=== PATIENT | female | born 1955 | race Caucasian/White ===

== ENCOUNTER 2017-02-04 09:56 | Observation (INO) | payer MEDICAID, OTHER, SELFPAY ==
--- NOTE | 2017-02-04 11:16 | C.PDOC ---
History Of Present Illness 61-year-old female, PMHx includes Hypertension and Hypercholesterolemia, presents to the emergency department with complaints of dyspnea on exertion x1 month. She notes associated tingling and numbness to tongue and B/L arms, right greater than left. Patient notes associated pain to right shoulder. Denies nausea/vomiting, dizziness, visual changes, or any other associated symptoms. No other complaints. Time Seen by Provider: 02/04/17 10:17 Chief Complaint (Nursing): Shortness Of Breath History Per: Patient History/Exam Limitations: no limitations Past Medical History Reviewed: Historical Data, Nursing Documentation, Vital Signs Vital Signs: Last Vital Signs Temp 98.8 F 02/04/17 15:02 Pulse 76 02/04/17 15:02 Resp 16 02/04/17 15:02 BP 160/88 H 02/04/17 15:02 Pulse Ox 98 02/04/17 15:02 - Medical History PMH: HTN Family History: States: Unknown Family Hx - Social History Hx Alcohol Use: No Hx Substance Use: No Review Of Systems Except As Marked, All Systems Reviewed And Found Negative. Constitutional: Negative for: Fever, Chills Eyes: Negative for: Vision Change Respiratory: Positive for: Shortness of Breath Musculoskeletal: Positive for: Neck Pain, Shoulder Pain Skin: Negative for: Rash Neurological: Positive for: Numbness. Negative for: Weakness, Headache, Dizziness Physical Exam - Physical Exam Appears: Non-toxic, No Acute Distress Skin: Warm, Dry, No Rash Head: Atraumatic, Normacephalic Eye(s): bilateral: Normal Inspection, PERRL Nose: Normal Oral Mucosa: Moist Lips: Normal Appearing Neck: Paracervical Tenderness Cardiovascular: Rhythm Regular Respiratory: Normal Breath Sounds, No Accessory Muscle Use Extremity: Tenderness (right shoulder, diffuse. no skin changes, pulses intact, painful range of motion), No Deformity, No Swelling Neurological/Psych: Oriented x3, Normal Speech ED Course And Treatment - Laboratory Results Result Diagrams: 02/04/17 11:42 02/04/17 11:42 ECG Rhythm: Sinus Rhythm ECG Interpretation: No Acute Changes Rate From EC O2 Sat by Pulse Oximetry: 98 - Other Rad CXR X-Ray: Viewed By Me, Read By Radiologist Interpretation: Accession No. : [id number]. Patient Name / ID : JUAN ZAPATA / [id number]. Exam Date : 02/04/2017 11:10:34 ( Approved ). Study Comment : Sex / Age : F / 61Y. Creator : Chauncey Monsivais MD. Dictator : Chauncey Monsivais MD. Cable Driller : Supervisor Tower : Chauncey Monsivais MD. Approver2 : Report Date : 02/04/2017 11:59:16. My Comment : . HISTORY: SOB on exertion. COMPARISON: No prior. TECHNIQUE: Chest PA and lateral. FINDINGS: LUNGS: No active pulmonary disease. PLEURA: No significant pleural effusion identified. No pneumothorax apparent. CARDIOVASCULAR: Normal. OSSEOUS STRUCTURES: No significant abnormalities. VISUALIZED UPPER ABDOMEN: Normal. OTHER FINDINGS: None. IMPRESSION: No active disease. C-spine xray X-Ray: Viewed By Me, Read By Radiologist Interpretation: Accession No. : [id number]. Patient Name / ID : JUAN ZAPATA / [id number]. Exam Date : 02/04/2017 11:10:54 ( Approved ). Study Comment : Sex / Age : F / 61Y. Creator : Chauncey Monsivais MD. Dictator : Chauncey Monsivais MD. Cable Driller : Supervisor Tower : Chauncey Monsivais MD. Approver2 : Report Date : 02/04/2017 11:46:58. My Comment : . PROCEDURE: Cervical Spine Radiographs. HISTORY: Pain. COMPARISON: None. FINDINGS: BONES: Alignment maintained. No fracture. Dens Intact. Limited visualization of 7th cervical vertebra in lateral view. Straightening of normal lordotic curvature. DISC SPACES: Narrowing of C5-6 intervertebral disc space consistent with degenerative disc disease. SOFT TISSUES: Normal. No prevertebral soft tissue swelling. OTHER FINDINGS: None. IMPRESSION: Degenerative disc disease at C5- 6. Otherwise unremarkable. Shoulder xray X-Ray: Viewed By Me, Read By Radiologist Interpretation: Accession No. : [id number]. Patient Name / ID : JUAN ZAPATA / [id number]. Exam Date : 02/04/2017 11:11:11 ( Approved ). Study Comment : Sex / Age : F / 61Y. Creator : Chauncey Monsivais MD. Dictator : Chauncey Monsivais MD. Cable Driller : Supervisor Tower : Chauncey Monsivais MD. Approver2 : Report Date : 02/04/2017 11:45:18. My Comment : . PROCEDURE: Radiographs of the Right Shoulder. HISTORY: Right arm/shoulder pain/numbness. COMPARISON: No prior. FINDINGS: BONES: Normal. No fracture. JOINTS: Normal. Glenohumeral and acromioclavicular joints preserved. No osteoarthritis. SOFT TISSUES: Normal. OTHER FINDINGS: None. IMPRESSION: Normal radiographs of the right shoulder. - CT Scan/US Head CT Other Rad Studies (CT/US): Read By Radiologist, Radiology Report Reviewed CT/US Interpretation: Accession No. : [id number]. Patient Name / ID : JUAN ZAPATA / [id number]. Exam Date : 02/04/2017 11:11:11 ( Approved ). Study Comment : Sex / Age : F / 61Y. Creator : Chauncey Monsivais MD. Dictator : Chauncey Monsivais MD. Cable Driller : Supervisor Tower : Chauncey Monsivais MD. Approver2 : Report Date : 02/04/2017 11:45:18. My Comment : . PROCEDURE : Radiographs of the Right Shoulder. HISTORY: Right arm/shoulder pain/ numbness. COMPARISON: No prior. FINDINGS: BONES: Normal. No fracture. JOINTS: Normal. Glenohumeral and acromioclavicular joints preserved. No osteoarthritis. SOFT TISSUES: Normal. OTHER FINDINGS: None. IMPRESSION: Normal radiographs of the right shoulder. Progress Note: CT Head. EKG. CK-MB, CMP, C Phos, Trop I. CBC, PTT, PT. Chest X-Ray. XR: C-Spine, R Shoulder. Case was d/w pt's PMD who instructed to put patient to Hospitalist service to [facility] for observation. Case was d/w who accepted the patient to her service. Disposition - Disposition Disposition: HOSPITALIZED Disposition Time: 14:16 Condition: FAIR - Clinical Impression Clinical Impression: Dyspnea on exertion, Numbness of tongue - Scribe Statement The provider has reviewed the documentation as recorded by the Scribjulianna Bell All medical record entries made by the Scribe were at my direction and personally dictated by me. I have reviewed the chart and agree that the record accurately reflects my personal performance of the history, physical exam, medical decision making, and the department course for this patient. I have also personally directed, reviewed, and agree with the discharge instructions and disposition.
--- NOTE | 2017-02-04 11:38 | CT ---
PROCEDURE: CT HEAD WITHOUT CONTRAST. HISTORY: tongue numbness COMPARISON: None available. TECHNIQUE: Axial computed tomography images were obtained through the head/brain without intravenous contrast. Radiation dose: Total exam DLP = 1011.03 mGy-cm. This CT exam was performed using one or more of the following dose reduction techniques: Automated exposure control, adjustment of the mA and/or kV according to patient size, and/or use of iterative reconstruction technique. FINDINGS: HEMORRHAGE: No intracranial hemorrhage. BRAIN: No mass effect or edema. No atrophy or chronic microvascular ischemic changes. VENTRICLES: Unremarkable. No hydrocephalus. CALVARIUM: Unremarkable. PARANASAL SINUSES: Unremarkable as visualized. No significant inflammatory changes. MASTOID AIR CELLS: Unremarkable as visualized. No inflammatory changes. OTHER FINDINGS: None. IMPRESSION: Normal CT of the Head.
--- NOTE | 2017-02-04 11:46 | RAD ---
PROCEDURE: Radiographs of the Right Shoulder HISTORY: Right arm/shoulder pain/numbness COMPARISON: No prior. FINDINGS: BONES: Normal. No fracture. JOINTS: Normal. Glenohumeral and acromioclavicular joints preserved. No osteoarthritis. SOFT TISSUES: Normal. OTHER FINDINGS: None. IMPRESSION: Normal radiographs of the right shoulder.
[2017-02-04 11:48] LABS: BASO % 0.7 % (0.0-2.0); EOS # 0.2 K/uL (0.0-0.7); EOS % 2.9 % (0.0-4.0); LYMPH % 31.9 % (20.0-40.0); MEAN CELL VOLUME 91.2 fL (81.0-99.0); MEAN CORPUSCULAR HEMOGLOBIN 29.5 pg (27.0-31.0); MEAN CORPUSCULAR HGB CONC 32.3 g/dL (33.0-37.0); MEAN PLATELET VOLUME 8.2 fL (7.2-11.7); MONO # 0.4 K/uL (0.0-0.8); MONO % 6.1 % (0.0-10.0); NRBC % 0.1 % (0.0-2.0); RED CELL DISTRIBUTION WIDTH 14.4 % (11.5-14.5); WHITE BLOOD COUNT 6.1 K/uL (4.8-10.8)
--- NOTE | 2017-02-04 11:48 | RAD ---
PROCEDURE: Cervical Spine Radiographs. HISTORY: Pain. COMPARISON: None. FINDINGS: BONES: Alignment maintained. No fracture. Dens Intact. Limited visualization of 7th cervical vertebra in lateral view. Straightening of normal lordotic curvature. DISC SPACES: Narrowing of C5-6 intervertebral disc space consistent with degenerative disc disease. SOFT TISSUES: Normal. No prevertebral soft tissue swelling. OTHER FINDINGS: None. IMPRESSION: Degenerative disc disease at C5-6. Otherwise unremarkable.
[2017-02-04 11:55] LABS: CHLORIDE 104 mmol/L (98-107); SODIUM 142 mmol/L (132-148)
[2017-02-04 11:57] LABS: AST/SGOT 43 U/L (14-36); BILIRUBIN,TOTAL 0.8 mg/dL (0.2-1.3); CARBON DIOXIDE 24 mmol/L (22-30); GFR AFRICAN-AMERICAN > 60; POTASSIUM 4.3 mmol/L (3.6-5.2)
[2017-02-04 11:58] LABS: ALB/GLOB RATIO 1.2 (1.0-2.1); ALKALINE PHOSPHATASE 68 U/L (38-126); ALT/SGPT 40 U/L (9-52); BLOOD UREA NITROGEN 12 mg/dL (7-17); CALCIUM 9.1 mg/dl (8.6-10.4); GLUCOSE,RANDOM 118 mg/dL (65-105); TOTAL PROTEIN 8.7 g/dL (6.3-8.3)
--- NOTE | 2017-02-04 12:01 | RAD ---
HISTORY: SOB on exertion COMPARISON: No prior. TECHNIQUE: Chest PA and lateral FINDINGS: LUNGS: No active pulmonary disease. PLEURA: No significant pleural effusion identified. No pneumothorax apparent. CARDIOVASCULAR: Normal. OSSEOUS STRUCTURES: No significant abnormalities. VISUALIZED UPPER ABDOMEN: Normal. OTHER FINDINGS: None. IMPRESSION: No active disease.
[2017-02-04] MEDS: Sodium Chloride 0.45% 1,000 ML IV SCH (15:26)
[2017-02-04 15:35] LABS: RBC URINE 1 /hpf (0-3); URINE BILIRUBIN NEGATIVE (NEGATIVE); URINE BLOOD NEGATIVE (NEGATIVE); URINE COLOR Yellow (YELLOW); URINE GLUCOSE (UA) NORMAL (Normal); URINE KETONE TRACE mg/dL (NEGATIVE); URINE LEUKOCYTE ESTERASE 1+ Leu/uL (Negative); URINE PROTEIN NEGATIVE (NEGATIVE); URINE UROBILINOGEN NORMAL mg/dL (0.2-1.0); WBC URINE 11 /hpf (0-5)
--- NOTE | 2017-02-04 15:55 | CP.PCM.HP ---
<Ca Farmer - Last Filed: 02/04/17 15:32> History of Present Illness - History of Present Illness History of Present Illness: CC: "short of breath and tingling" HPI: 61 year old female with PMHx of HTN and HLD presents with multiple chronic complaints. The patient states that 6 months ago she started to develop shortness of breath on exertion. She is able to walk 1-2 blocks before dyspnea occurs. Denies shortness of breath at rest and orthopnea. The patient also complains of a dry cough associated with the exertion. In September 2016 she went to see her PMD Dr Mead and was diagnosed with HTN. He started her on a month course of Losartan and Simvastatin but the patient states that she never went back to refill her medications because she does not have insurance. Patient states that she has also had one month of right neck pain associated with bilateral upper extremity numbness and tingling. Patient states that the neck pain starts at the base of her skull and radiates down her scapula to her mid-back. The pain is described as tingling, rated 7/10 at its worst, constant , relieved with Tylenol, and occurs in her arms and hands. Patient denies fever , chills, nausea, vomiting, diarrhea, constipation, trauma, change in bowel movements, urinary symptoms, headache, dizziness, weakness, dysphagia, slurred speech, facial drooping, chest pain, palpitations, change in vision, syncope, anxiety, rash, recent travel, seizure, and swelling. All other ROS negative. 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 absent: Chills, Fever - EENT Eyes: As Per HPI. absent: Blurred Vision, Change in Vision Ears: As Per HPI. absent: Dizziness Nose/Mouth/Throat: As Per HPI. absent: Sore Throat - Cardiovascular Cardiovascular: As Per HPI, Dyspnea on Exertion. absent: Chest Pain, Chest Pain at Rest, Lightheadedness, Orthopnea, Palpitations, Pedal Edema, Syncope - Respiratory Respiratory: As Per HPI, Cough, Dyspnea on Exertion. absent: Hemoptysis, Wheezing, Stridor, Chest Congestion, Excessive Mucous Production - Gastrointestinal Gastrointestinal: As Per HPI. absent: Bloating, Constipation, Diarrhea, Nausea , Vomiting - Genitourinary Genitourinary: As Per HPI. absent: Difficulty Urinating, Dysuria, Flank Pain, Hematuria, Pyuria - Musculoskeletal Musculoskeletal: As Per HPI, Numbness, Tingling. absent: Muscle Cramps, Muscle Weakness - Integumentary Integumentary: As Per HPI. absent: New Lesions, Rash - Neurological Neurological: As Per HPI, Radicular Pain. absent: Dizziness, Headaches, Tremor , Vertigo, Weakness - Psychiatric Psychiatric: As Per HPI. absent: Anxiety, Depression - Endocrine Endocrine: As Per HPI. absent: Palpitations Past Patient History - Past Social History Smoking Status: Never Smoked - CARDIAC Hx Hypertension: Yes - PSYCHIATRIC Hx Substance Use: No - SURGICAL HISTORY Hx Surgeries: Yes Hx Section: Yes (X1) Meds Allergies/Adverse Reactions: Allergies Allergy/AdvReac Type Severity Reaction Status Date / Time No Known Allergies Allergy Verified 02/04/17 10:14 Physical Exam - Constitutional Appears: Non-toxic, No Acute Distress - Head Exam Head Exam: ATRAUMATIC, NORMOCEPHALIC - Eye Exam Eye Exam: EOMI, Normal appearance, PERRL Pupil Exam: NORMAL ACCOMODATION - ENT Exam ENT Exam: Mucous Membranes Moist, Normal Exam - Neck Exam Neck exam: Positive for: Full Rom Additional comments: mild tenderness to palpation of cervical paraspinal muscle on right side, pain with right sidebending of head - Respiratory Exam Respiratory Exam: Clear to Auscultation Bilateral, NORMAL BREATHING PATTERN. absent: Accessory Muscle Use, Rhonchi, Wheezes, Respiratory Distress - Cardiovascular Exam Cardiovascular Exam: REGULAR RHYTHM, +S1, +S2. absent: Irregular Rhythm, Systolic Murmur - GI/Abdominal Exam GI & Abdominal Exam: Normal Bowel Sounds, Soft. absent: Distended, Firm, Guarding, Tenderness - Extremities Exam Extremities exam: Positive for: full ROM, normal inspection, pedal pulses present. Negative for: pedal edema - Back Exam Back exam: NORMAL INSPECTION. absent: CVA tenderness (L), CVA tenderness (R), paraspinal tenderness, rash noted - Neurological Exam Neurological exam: Alert, CN II-XII Intact, Normal Gait, Oriented x3, Reflexes Normal - Expanded Neurological Exam Expanded Patient oriented to: person, place, time Cranial nerves: EOM's Intact: Normal, Facial Palsey w/Forehead Movement: Normal , Facial Palsey w/o Forehead Movement: Normal, Facial Sensation: Normal, Gag Reflex: Normal, Nystagmus: Normal, Tongue Deviation: Normal Cerebellar Function: Finger to Nose: Normal Upper motor neuron: Babinski Sign: Normal Sensory exam: Lower Extremity Light Touch: Normal, Lower Extremity Temperature: Normal, Upper Extremity Light Touch: Normal, Upper Extremity Temperature: Normal Neuro motor strength exam: Left Upper Extremity: 5, Right Upper Extremity: 5, Left Lower Extremity: 5, Right Lower Extremity: 5 DTR: Patellar Left: 2+, Patellar Right: 2+ Coma Scale Eye Opening: SPONTANEOUS Coma Scale Motor Response: OBEYS COMMANDS - Psychiatric Exam Psychiatric exam: Normal Affect, Normal Mood - Skin Skin Exam: Dry, Intact, Normal Color, Warm Results - Vital Signs Recent Vital Signs: Last Vital Signs Temp 98.8 F 02/04/17 15:02 Pulse 76 02/04/17 15:02 Resp 16 02/04/17 15:02 BP 160/88 H 02/04/17 15:02 Pulse Ox 98 02/04/17 15:02 - Labs Result Diagrams: 02/04/17 11:42 02/04/17 11:42 Assessment & Plan - Assessment and Plan (Free Text) Assessment: 1. Dyspnea on exertion Admit to tele obs CXR- normal findings EKG- NSR, no ST changes AISHA negative x1, f/u ROMIs x2 with EKGs to rule out ACS f/u BNP f/u ECHO f/u HgA1C, lipid panel, TSH 2. Radiculopathy C-spine Xray: Degenerative joint disease of C5-6 Shoulder X-ray: negative for acute fracture or dislocation Naproxen 550mg PO BID Head CT: no acute findings, normal head scan f/u PHILIP, Vit B12, Lyme 3. Uncontrolled HTN Start Losartan 25mg PO daily Monitor and adjust as needed 4. Elevated CPK 298 on admission IVF 1/2NS @60cc/hr Monitor 5. Transaminitis Mildly elevated AST 43 likely due to daily Tylenol consumption Monitor and recheck CMP in AM 6. HLD Crestor 10mg PO HS 7. Prophylactic measure Pepcid 20mg PO BID Heparin 5000u SC q8h SCDs <Ricki Deluca - Last Filed: 02/04/17 16:36> Results - Vital Signs Recent Vital Signs: Last Vital Signs Temp 98.8 F 02/04/17 15:02 Pulse 76 02/04/17 15:02 Resp 16 02/04/17 15:02 BP 160/88 H 02/04/17 15:02 Pulse Ox 98 02/04/17 15:02 - Labs Result Diagrams: 02/04/17 11:42 02/04/17 11:42 Labs: Laboratory Results - last 24 hr 02/04/17 02/04/17 02/04/17 15:22 15:22 15:34 Vitamin B12 471 25-OH Vitamin D Total 33.8 TSH 3rd Generation 1.15 Urine Color Yellow Urine Clarity Clear Urine pH 5.0 Ur Specific Bledsoe 1.016 Urine Protein Negative Urine Glucose (UA) Normal Urine Ketones Trace Urine Blood Negative Urine Nitrate Negative Urine Bilirubin Negative Urine Urobilinogen Normal Ur Leukocyte Esterase 1+ H Urine WBC (Auto) 11 H Urine RBC (Auto) 1 Ur Squamous Epith Cells 2 Attending/Attestation - Attestation I have personally seen and examined this patient.: Yes I have fully participated in the care of the patient.: Yes I have reviewed all pertinent clinical information: Yes Notes (Text): 02/04/17 16:34 Patient was seen and examined at bedside with the resident No complaint of chest pain at this time Complains of for neck and right arm pain Possibly radical of Brethine We will rule out acute cord syndrome We will also obtain echocardiogram and a BNP for evaluation of CHF We will also start the patient on antihypertensive medication as she has been noncompliant with her medication I discussed the plan of care with the resident and agree with the above history and physical and assessment/plan by the resident
[2017-02-04 16:13] LABS: THYROID STIMULATING HORMONE 1.15 mIU/L (0.46-4.68)
[2017-02-04] MEDS: Naproxen 550 mg Tab PO SCH (17:09)
[2017-02-04 20:44] LABS: LYME IGG NEGATIVE (NEGATIVE)
[2017-02-05 08:35] LABS: BASO % 0.4 % (0.0-2.0); EOS # 0.3 K/uL (0.0-0.7); EOS % 4.5 % (0.0-4.0); HEMATOCRIT 40.1 % (34.0-47.0); LYMPH # 2.5 K/uL (1.0-4.3); LYMPH % 44.4 % (20.0-40.0); MEAN CELL VOLUME 91.6 fL (81.0-99.0); MEAN CORPUSCULAR HEMOGLOBIN 30.1 pg (27.0-31.0); MEAN CORPUSCULAR HGB CONC 32.8 g/dL (33.0-37.0); MEAN PLATELET VOLUME 8.6 fL (7.2-11.7); MONO # 0.4 K/uL (0.0-0.8); MONO % 6.5 % (0.0-10.0); NRBC % 0.1 % (0.0-2.0); WHITE BLOOD COUNT 5.6 K/uL (4.8-10.8)
--- NOTE | 2017-02-05 08:35 | CP.PCM.PN ---
Objective - Vital Signs/Intake and Output Vital Signs (last 24 hours): Temp Pulse Resp BP Pulse Ox 98.2 F 59 L 20 101/60 97 02/04/17 23:30 02/05/17 03:17 02/04/17 23:30 02/04/17 23:30 02/04/17 23:30 Intake and Output: 02/05/17 02/05/17 06:59 18:59 Intake Total 1140 Balance 1140 - Medications Medications: Current Medications Famotidine (Pepcid) 20 mg PO BID [facility] Last Admin: 02/04/17 17:09 Dose: 20 mg Heparin Sodium (Porcine) (Heparin) 5,000 units SC Q8H [facility] Last Admin: 02/05/17 06:34 Dose: 5,000 units Sodium Chloride (Sodium Chloride 0.45%) 1,000 mls @ 60 mls/hr IV .[id number] [facility] Last Admin: 02/04/17 15:26 Dose: 60 mls/hr Losartan Potassium (Cozaar) 25 mg PO DAILY [facility] Last Admin: 02/04/17 16:30 Dose: 25 mg Naproxen (Anaprox Ds) 550 mg PO BID [facility] Last Admin: 02/04/17 17:09 Dose: 550 mg Pneumococcal Polyvalent Vaccine (Pneumovax 23 Vaccine) 0.5 ml IM .ONCE ONE Stop: 02/07/17 10:01 Rosuvastatin Calcium (Crestor) 5 mg PO [facility] Last Admin: 02/04/17 21:45 Dose: 5 mg - Labs Labs: PT 11.1 SECONDS (9.7-12.2) 02/04/17 11:42 INR 1.0 02/04/17 11:42 APTT 34 SECONDS (21-34) 02/04/17 11:42
[2017-02-05] MEDS: Sodium Chloride 0.45% 1,000 ML IV SCH (08:43)
[2017-02-05 08:44] LABS: CHLORIDE 104 mmol/L (98-107); POTASSIUM 3.9 mmol/L (3.6-5.2); SODIUM 142 mmol/L (132-148)
[2017-02-05 08:46] LABS: CARBON DIOXIDE 22 mmol/L (22-30); CHOLESTEROL 230 mg/dL (0-199); GFR AFRICAN-AMERICAN > 60
[2017-02-05 08:47] LABS: ALB/GLOB RATIO 1.3 (1.0-2.1); ALKALINE PHOSPHATASE 70 U/L (38-126); ALT/SGPT 29 U/L (9-52); AST/SGOT 30 U/L (14-36); BILIRUBIN,TOTAL 0.9 mg/dL (0.2-1.3); BLOOD UREA NITROGEN 10 mg/dL (7-17); CALCIUM 8.9 mg/dl (8.6-10.4); GLUCOSE,RANDOM 100 mg/dL (65-105); TOTAL PROTEIN 7.7 g/dL (6.3-8.3)
[2017-02-05 09:01] VITALS: RESP 20
[2017-02-05] MEDS: Naproxen 550 mg Tab PO SCH ×2 (09:48→18:28)
[2017-02-05 16:01] VITALS: BP 107/67; TEMP 98.1; O2SAT 98
--- NOTE | 2017-02-05 18:24 | CP.PCM.DIS ---
<Erinn Jung - Last Filed: 02/05/17 21:01> Provider - Provider Date of Admission: 02/04/17 14:14 Attending physician: Ricki Deluca MD Primary care physician: Dr. Mead Time Spent in preparation of Discharge (in minutes): 45 Diagnosis - Discharge Diagnosis (1) Dyspnea on exertion Status: Acute (2) Neck pain Status: Acute Hospital Course - Lab Results Lab Results: Most Recent Lab Values WBC 5.6 K/uL (4.8-10.8) 02/05/17 08:15 RBC 4.38 Mil/uL (3.80-5.20) 02/05/17 08:15 Hgb 13.2 g/dL (11.0-16.0) 02/05/17 08:15 Hct 40.1 % (34.0-47.0) 02/05/17 08:15 MCV 91.6 fL (81.0-99.0) 02/05/17 08:15 MCH 30.1 pg (27.0-31.0) 02/05/17 08:15 MCHC 32.8 g/dL (33.0-37.0) L 02/05/17 08:15 RDW 14.0 % (11.5-14.5) 02/05/17 08:15 Plt Count 267 K/uL (130-400) 02/05/17 08:15 MPV 8.6 fL (7.2-11.7) 02/05/17 08:15 Neut % (Auto) 44.2 % (50.0-75.0) L 02/05/17 08:15 Lymph % (Auto) 44.4 % (20.0-40.0) H 02/05/17 08:15 Garden % (Auto) 6.5 % (0.0-10.0) 02/05/17 08:15 Eos % (Auto) 4.5 % (0.0-4.0) H 02/05/17 08:15 Baso % (Auto) 0.4 % (0.0-2.0) 02/05/17 08:15 Neut # 2.5 K/uL (1.8-7.0) 02/05/17 08:15 Lymph # 2.5 K/uL (1.0-4.3) 02/05/17 08:15 Garden # 0.4 K/uL (0.0-0.8) 02/05/17 08:15 Eos # 0.3 K/uL (0.0-0.7) 02/05/17 08:15 Baso # 0.0 K/uL (0.0-0.2) 02/05/17 08:15 PT 11.1 SECONDS (9.7-12.2) 02/04/17 11:42 INR 1.0 02/04/17 11:42 APTT 34 SECONDS (21-34) 02/04/17 11:42 Sodium 142 mmol/L (132-148) 02/05/17 08:15 Potassium 3.9 mmol/L (3.6-5.2) 02/05/17 08:15 Chloride 104 mmol/L (98-107) 02/05/17 08:15 Carbon Dioxide 22 mmol/L (22-30) 02/05/17 08:15 Anion Gap 19 (10-20) 02/05/17 08:15 BUN 10 mg/dL (7-17) 02/05/17 08:15 Creatinine 0.7 MG/DL (0.7-1.2) 02/05/17 08:15 Est GFR ( Amer) > 60 02/05/17 08:15 Est GFR (Non-Af Amer) > 60 02/05/17 08:15 Random Glucose 100 mg/dL (65-105) 02/05/17 08:15 Calcium 8.9 mg/dl (8.6-10.4) 02/05/17 08:15 Total Bilirubin 0.9 mg/dL (0.2-1.3) 02/05/17 08:15 AST 30 U/L (14-36) 02/05/17 08:15 ALT 29 U/L (9-52) 02/05/17 08:15 Alkaline Phosphatase 70 U/L (38-126) 02/05/17 08:15 Total Creatine Kinase 242 U/L (30-135) H 02/05/17 08:15 CK-MB (Mass) 1.21 ng/mL (0.0-3.38) 02/05/17 01:56 Troponin I 0.0120 ng/mL (0.00-0.120) 02/04/17 11:42 Troponin I, Quant < 0.0120 ng/mL (0.00-0.120) 02/05/17 01:56 NT-Pro-B Natriuret Pep 29.1 pg/mL (0-900) 02/05/17 12:33 Total Protein 7.7 g/dL (6.3-8.3) 02/05/17 08:15 Albumin 4.3 g/dL (3.5-5.0) 02/05/17 08:15 Globulin 3.4 gm/dL (2.2-3.9) 02/05/17 08:15 Albumin/Globulin Ratio 1.3 (1.0-2.1) 02/05/17 08:15 Triglycerides 122 mg/dL (0-149) D 02/05/17 08:15 Cholesterol 230 mg/dL (0-199) H 02/05/17 08:15 LDL Cholesterol Direct 126 mg/dL (0-129) 02/05/17 08:15 HDL Cholesterol 67 mg/dL (30-70) 02/05/17 08:15 Vitamin B12 471 pg/mL (239-931) 02/04/17 15:22 25-OH Vitamin D Total 33.8 NG/ML (30.0-100.0) 02/04/17 15:34 TSH 3rd Generation 1.15 mIU/L (0.46-4.68) 02/04/17 15:22 Urine Color Yellow (YELLOW) 02/04/17 15:22 Urine Clarity Clear (Clear) 02/04/17 15:22 Urine pH 5.0 (5.0-8.0) 02/04/17 15:22 Ur Specific [place] 1.016 (1.003-1.030) 02/04/17 15:22 Urine Protein Negative mg/dL (NEGATIVE) 02/04/17 15:22 Urine Glucose (UA) Normal mg/dL (Normal) 02/04/17 15:22 Urine Ketones Trace mg/dL (NEGATIVE) 02/04/17 15:22 Urine Blood Negative (NEGATIVE) 02/04/17 15:22 Urine Nitrate Negative (NEGATIVE) 02/04/17 15:22 Urine Bilirubin Negative (NEGATIVE) 02/04/17 15:22 Urine Urobilinogen Normal mg/dL (0.2-1.0) 02/04/17 15:22 Ur Leukocyte Esterase 1+ [place]/uL (Negative) H 02/04/17 15:22 Urine WBC (Auto) 11 /hpf (0-5) H 02/04/17 15:22 Urine RBC (Auto) 1 /hpf (0-3) 02/04/17 15:22 Ur Squamous Epith Cells 2 /hpf (0-5) 02/04/17 15:22 Lyme Disease IgG Ab (IFA) Negative (NEGATIVE) 02/04/17 15:22 Lyme Disease IgM Ab Negative (NEGATIVE) 02/04/17 15:22 - Hospital Course Hospital Course: 61 year old female with PMHx of HTN and HLD presents with multiple chronic complaints. The patient states that 6 months ago she started to develop shortness of breath on exertion. She is able to walk 1-2 blocks before dyspnea occurs. Denies shortness of breath at rest and orthopnea. The patient also complains of a dry cough associated with the exertion. In September 2016 she went to see her PMD Dr Mead and was diagnosed with HTN. He started her on a month course of Losartan and Simvastatin but the patient states that she never went back to refill her medications because she does not have insurance. Patient states that she has also had one month of right neck pain associated with bilateral upper extremity numbness and tingling. Patient states that the neck pain starts at the base of her skull and radiates down her scapula to her mid-back. The pain is described as tingling, rated 7/10 at its worst, constant , relieved with Tylenol, and occurs in her arms and hands. Patient denies fever , chills, nausea, vomiting, diarrhea, constipation, trauma, change in bowel movements, urinary symptoms, headache, dizziness, weakness, dysphagia, slurred speech, facial drooping, chest pain, palpitations, change in vision, syncope, anxiety, rash, recent travel, seizure, and swelling. All other ROS negative. Patient was admitted to [facility]. CXR showed normal findings and EKG showed NSR , no ST changes. AISHA negative x3. BNP was WNL and ECHO was ordered and completed. For the neck pain, patient was also ordered for C-spine Xray which showed Degenerative joint disease of C5-6. Shoulder X-ray was negative for acute fracture or dislocation. She was ordered for Naproxen 550mg PO BID. Head CT was also done and showed no acute findings, normal head scan. For her HTN, patient was started on Losartan 25mg PO daily. Incidentally, patient was also found to have elevated CPK 298 on admission. Patient was placed on IVF 1/2NS @60cc/hr and CPK improved. Patient was also found to have mildly elevated AST 43 likely due to daily Tylenol consumption, which resolved by next day AM labs. Patient was also placed on Crestor 10mg PO HS Patient was cleared for D/C to home as per Dr. Deluca. Instructed patient to take the following medications as prescribed: Cozaar 50 mg PO daily Simvastatin 20 mg PO daily Patient to follow up at the [facility] or with Dr. Mead. this is only a summary of the hospital course. Please see chart for full details. Discharge Exam - Head Exam Head Exam: ATRAUMATIC, NORMOCEPHALIC - Eye Exam Eye Exam: EOMI, Normal appearance Pupil Exam: NORMAL ACCOMODATION - ENT Exam ENT Exam: Mucous Membranes Moist - Neck Exam Neck exam: Full Rom - Respiratory Exam Respiratory Exam: Clear to PA & Lateral, NORMAL BREATHING PATTERN - Cardiovascular Exam Cardiovascular Exam: REGULAR RHYTHM, +S1, +S2 - GI/Abdominal Exam GI & Abdominal Exam: Normal Bowel Sounds, Soft. absent: Distended - Extremities Exam Extremities exam: full ROM - Neurological Exam Neurological exam: Alert, CN II-XII Intact, Oriented x3 - Psychiatric Exam Psychiatric exam: Normal Affect, Normal Mood - Skin Skin Exam: Dry, Warm Discharge Plan - Discharge Medications Prescriptions: Losartan [Cozaar] 50 mg PO DAILY #30 tab Simvastatin 20 mg PO DAILY #30 tablet - Follow Up Plan Condition: FAIR Disposition: HOME/ ROUTINE Instructions: Dyspnea (GEN), Low Sodium Diet (DC), Hypertension (DC) Additional Instructions: Please discharge patient to home as per Dr. Deluca. Patient to take the following medications as prescribed: Cozaar 50 mg PO daily Simvastatin 20 mg PO daily Please follow up with Dr. Mead within one week of discharge to follow up in results of ECHO. You will also need follow up creatinine kinase levels to make sure they are trending down. Please return to the emergency room if symptoms return. Instructions explained to patient and family. All in agreement. Referrals: Khanh Mead MD [Staff Provider] - <Ricki Deluca - Last Filed: 02/06/17 15:20> Provider - Provider Date of Admission: 02/04/17 14:14 Attending physician: Ricki Deluca MD Diagnosis - Discharge Diagnosis (1) Uncontrolled hypertension Status: Acute (2) Elevated CPK Status: Acute (3) Neck pain Status: Acute (4) Neck pain Status: Acute Hospital Course - Lab Results Lab Results: Most Recent Lab Values WBC 5.6 K/uL (4.8-10.8) 02/05/17 08:15 RBC 4.38 Mil/uL (3.80-5.20) 02/05/17 08:15 Hgb 13.2 g/dL (11.0-16.0) 02/05/17 08:15 Hct 40.1 % (34.0-47.0) 02/05/17 08:15 MCV 91.6 fL (81.0-99.0) 02/05/17 08:15 MCH 30.1 pg (27.0-31.0) 02/05/17 08:15 MCHC 32.8 g/dL (33.0-37.0) L 02/05/17 08:15 RDW 14.0 % (11.5-14.5) 02/05/17 08:15 Plt Count 267 K/uL (130-400) 02/05/17 08:15 MPV 8.6 fL (7.2-11.7) 02/05/17 08:15 Neut % (Auto) 44.2 % (50.0-75.0) L 02/05/17 08:15 Lymph % (Auto) 44.4 % (20.0-40.0) H 02/05/17 08:15 Garden % (Auto) 6.5 % (0.0-10.0) 02/05/17 08:15 Eos % (Auto) 4.5 % (0.0-4.0) H 02/05/17 08:15 Baso % (Auto) 0.4 % (0.0-2.0) 02/05/17 08:15 Neut # 2.5 K/uL (1.8-7.0) 02/05/17 08:15 Lymph # 2.5 K/uL (1.0-4.3) 02/05/17 08:15 Garden # 0.4 K/uL (0.0-0.8) 02/05/17 08:15 Eos # 0.3 K/uL (0.0-0.7) 02/05/17 08:15 Baso # 0.0 K/uL (0.0-0.2) 02/05/17 08:15 PT 11.1 SECONDS (9.7-12.2) 02/04/17 11:42 INR 1.0 02/04/17 11:42 APTT 34 SECONDS (21-34) 02/04/17 11:42 Sodium 142 mmol/L (132-148) 02/05/17 08:15 Potassium 3.9 mmol/L (3.6-5.2) 02/05/17 08:15 Chloride 104 mmol/L (98-107) 02/05/17 08:15 Carbon Dioxide 22 mmol/L (22-30) 02/05/17 08:15 Anion Gap 19 (10-20) 02/05/17 08:15 BUN 10 mg/dL (7-17) 02/05/17 08:15 Creatinine 0.7 MG/DL (0.7-1.2) 02/05/17 08:15 Est GFR ( Amer) > 60 02/05/17 08:15 Est GFR (Non-Af Amer) > 60 02/05/17 08:15 Random Glucose 100 mg/dL (65-105) 02/05/17 08:15 Calcium 8.9 mg/dl (8.6-10.4) 02/05/17 08:15 Total Bilirubin 0.9 mg/dL (0.2-1.3) 02/05/17 08:15 AST 30 U/L (14-36) 02/05/17 08:15 ALT 29 U/L (9-52) 02/05/17 08:15 Alkaline Phosphatase 70 U/L (38-126) 02/05/17 08:15 Total Creatine Kinase 242 U/L (30-135) H 02/05/17 08:15 CK-MB (Mass) 1.21 ng/mL (0.0-3.38) 02/05/17 01:56 Troponin I 0.0120 ng/mL (0.00-0.120) 02/04/17 11:42 Troponin I, Quant < 0.0120 ng/mL (0.00-0.120) 02/05/17 01:56 NT-Pro-B Natriuret Pep 29.1 pg/mL (0-900) 02/05/17 12:33 Total Protein 7.7 g/dL (6.3-8.3) 02/05/17 08:15 Albumin 4.3 g/dL (3.5-5.0) 02/05/17 08:15 Globulin 3.4 gm/dL (2.2-3.9) 02/05/17 08:15 Albumin/Globulin Ratio 1.3 (1.0-2.1) 02/05/17 08:15 Triglycerides 122 mg/dL (0-149) D 02/05/17 08:15 Cholesterol 230 mg/dL (0-199) H 02/05/17 08:15 LDL Cholesterol Direct 126 mg/dL (0-129) 02/05/17 08:15 HDL Cholesterol 67 mg/dL (30-70) 02/05/17 08:15 Vitamin B12 471 pg/mL (239-931) 02/04/17 15:22 25-OH Vitamin D Total 33.8 NG/ML (30.0-100.0) 02/04/17 15:34 TSH 3rd Generation 1.15 mIU/L (0.46-4.68) 02/04/17 15:22 Urine Color Yellow (YELLOW) 02/04/17 15:22 Urine Clarity Clear (Clear) 02/04/17 15:22 Urine pH 5.0 (5.0-8.0) 02/04/17 15:22 Ur Specific [place] 1.016 (1.003-1.030) 02/04/17 15:22 Urine Protein Negative mg/dL (NEGATIVE) 02/04/17 15:22 Urine Glucose (UA) Normal mg/dL (Normal) 02/04/17 15:22 Urine Ketones Trace mg/dL (NEGATIVE) 02/04/17 15:22 Urine Blood Negative (NEGATIVE) 02/04/17 15:22 Urine Nitrate Negative (NEGATIVE) 02/04/17 15:22 Urine Bilirubin Negative (NEGATIVE) 02/04/17 15:22 Urine Urobilinogen Normal mg/dL (0.2-1.0) 02/04/17 15:22 Ur Leukocyte Esterase 1+ [place]/uL (Negative) H 02/04/17 15:22 Urine WBC (Auto) 11 /hpf (0-5) H 02/04/17 15:22 Urine RBC (Auto) 1 /hpf (0-3) 02/04/17 15:22 Ur Squamous Epith Cells 2 /hpf (0-5) 02/04/17 15:22 Lyme Disease IgG Ab (IFA) Negative (NEGATIVE) 02/04/17 15:22 Lyme Disease IgM Ab Negative (NEGATIVE) 02/04/17 15:22 Attending/Attestation - Attestation I have personally seen and examined this patient.: Yes I have fully participated in the care of the patient.: Yes I have reviewed all pertinent clinical information, including history, physical exam and plan: Yes Notes (Text): 02/06/17 15:18 Patient was seen and examined at bedside with the resident Patient's symptoms are for numbness have improved significantly Patient likely has cervical radiculopathy which is causing pain in the neck and in the shoulders It is also causing numbness in the arms Patient blood pressure is uncontrolled and she started on medication and blood pressures controlled Patient also had an echocardiogram. Patient will follow with Dr. Mead as outpatient and he will review with the cardiology workup done as inpatient Discharge medication prescribed for the patient Discharge plan discussed in detail with the patient and her family who verbalized understanding We will discharge the patient to home And she'll follow-up with her primary medical doctor as outpatient Patient will repeat her lab work to see if her CPK has normalized. I agree with the above discharge note by the resident.
[2017-02-05 18:43] VITALS: PULSE 67
[2017-02-07] MEDS ORDERED: Pneumococcal 23-Valent Vaccine IM ONE (10:00)
--- NOTE | 2017-02-07 15:49 | CARD ---
APPROVED REPORT EKG Measurement Heart [id number] [place] 184P64 [id number] <Conclusion> Sinus bradycardia Otherwise normal ECG
--- NOTE | 2017-02-09 09:01 | CARD ---
APPROVED REPORT EKG Measurement Heart [id number] [place] 186P59 [id number] <Conclusion> Normal sinus rhythm Possible Left atrial enlargement Low voltage QRS Borderline ECG
--- NOTE | 2017-02-09 09:06 | CARD ---
APPROVED REPORT EKG Measurement Heart [id number] [place] 174P59 [id number] <Conclusion> Normal sinus rhythm Normal ECG
--- NOTE | 2017-02-09 10:59 | CARD ---
APPROVED REPORT EXAM: Two-dimensional and M-mode echocardiogram with Doppler and color Doppler. Other Information Quality : GoodRhythm : NSR INDICATION Dyspnea SOB ON EXERTION NUMBNESS TO THE TONGUE, M-Mode DIMENSIONS RVDd1.07 (2.1-3.2cm)Left Atrium (MM)3.71 (2.5-4.0cm) IVSd1.17 (0.7-1.1cm)Aortic Root2.57 (2.2-3.7cm) LVDd4.78 (4.0-5.6cm)Aortic Cusp Exc.1.63 (1.5-2.0cm) PWd1.17 (0.7-1.1cm)FS (%) 42 % LVDs2.77 (2.0-3.8cm)LVEF (%)73 (>50%) Mitral Valve MV E Xclwpeok61.5cm/sMV A Icsibzom68.8cm/sE/A ratio0.7 TDI E/Lateral E'0.0E/Medial E'0.0 Tricuspid Valve TR Peak Nhjkuwsk602qu/sTR Peak Gr.91myOcCSCW32yfWa LEFT VENTRICLE The left ventricle is normal size. There is borderline concentric left ventricular hypertrophy. The left ventricle is hyperdynamic. No regional wall motion abnormalities noted. Transmitral Doppler flow pattern is Grade I-abnormal relaxation pattern. No left ventricle thrombus noted on this study. There is no ventricular septal defect visualized. There is no left ventricular aneurysm. There is no mass noted in the left ventricle. RIGHT VENTRICLE The right ventricle is normal size. There is normal right ventricular wall thickness. The right ventricular systolic function is normal. ATRIA The left atrium size is normal. The right atrium size is normal. The interatrial septum is intact with no evidence for an atrial septal defect. AORTIC VALVE The aortic valve is normal in structure and function. No aortic regurgitation is present. There is no aortic valvular stenosis. There is no aortic valvular vegetation. MITRAL VALVE The mitral valve is normal in structure and function. There is no evidence of mitral valve prolapse. There is no mitral valve stenosis. There is no mitral valve regurgitation noted. TRICUSPID VALVE The tricuspid valve is normal in structure and function. There is trace tricuspid regurgitation. There is no tricuspid valve prolapse or vegetation. There is no tricuspid valve stenosis. PULMONIC VALVE The pulmonary valve is normal in structure and function. There is trace to mild pulmonic valvular regurgitation. There is no pulmonic valvular stenosis. GREAT VESSELS The aortic root is normal in size. The ascending aorta is normal in size. The pulmonary artery is normal. The IVC is normal in size and collapses >50% with inspiration. PERICARDIAL EFFUSION The pericardium appears normal. There is no pleural effusion. <Conclusion> The left ventricle is hyperdynamic. There is borderline concentric left ventricular hypertrophy. Transmitral Doppler flow pattern is Grade I-abnormal relaxation pattern. There is trace tricuspid regurgitation. There is trace to mild pulmonic valvular regurgitation.
== END 2017-02-05 19:15 | disposition home or self-care (01) ==
LOC: C.ER 09:56 → C.9E 14:14 → C.6T 14:58
PROVIDERS: ADMIT Internal Medicine; ATTEND Internal Medicine
DX: M54.12 Radiculopathy, cervical region (principal); I10 Essential (primary) hypertension; E78.5 Hyperlipidemia, unspecified; R06.00 Dyspnea, unspecified
CPT/HCPCS: 36415; 70450; 71020; 72040; 73030; 80053; 80061; 81001; 82306; 82550; 82553; 82607; 83036; 83880; 84443; 84484; 85025; 85610; 85730; 86038; 86039; 86618; 93005; 93306; 99285; G0378; J1644; J7030

== ENCOUNTER 2017-12-21 13:06 | Emergency (ER) | payer MEDICAID, OTHER ==
[2017-12-21 13:29] VITALS: BMI 29.2
[2017-12-21 13:32] VITALS: RESP 20; O2SAT 99
--- NOTE | 2017-12-21 13:40 | RAD ---
PROCEDURE: CHEST RADIOGRAPH, 1 VIEW HISTORY: SOB COMPARISON: Chest radiograph dated 02/04/2017. FINDINGS: LUNGS: Clear. PLEURA: No pneumothorax or pleural fluid seen. CARDIOVASCULAR: Cardiomediastinal silhouette unchanged. OSSEOUS STRUCTURES: Unchanged. VISUALIZED UPPER ABDOMEN: Normal. OTHER FINDINGS: None. IMPRESSION: No active disease.
[2017-12-21 13:58] LABS: BASO % 0.6 % (0.0-2.0); EOS # 0.1 K/uL (0.0-0.7); HEMOGLOBIN 13.9 g/dL (11.0-16.0); LYMPH % 29.1 % (20.0-40.0); MEAN CELL VOLUME 90.6 fL (81.0-99.0); MEAN CORPUSCULAR HEMOGLOBIN 29.9 pg (27.0-31.0); MEAN PLATELET VOLUME 8.9 fL (7.2-11.7); MONO # 0.3 K/uL (0.0-0.8); MONO % 4.9 % (0.0-10.0); NEUT # 4.2 K/uL (1.8-7.0); NEUT % 63.4 % (50.0-75.0); RBC 4.65 Mil/uL (3.80-5.20); RED CELL DISTRIBUTION WIDTH 13.8 % (11.5-14.5); WHITE BLOOD COUNT 6.7 K/uL (4.8-10.8)
[2017-12-21 14:02] LABS: SQUAMOUS EPITHIAL 1 /hpf (0-5); URINE BILIRUBIN NEGATIVE (NEGATIVE); URINE BLOOD NEGATIVE (NEGATIVE); URINE CLARITY Clear (Clear); URINE COLOR Straw (YELLOW); URINE GLUCOSE (UA) NORMAL (Normal); URINE LEUKOCYTE ESTERASE NEG Leu/uL (Negative); URINE PROTEIN NEGATIVE (NEGATIVE); URINE UROBILINOGEN NORMAL mg/dL (0.2-1.0)
[2017-12-21 14:07] LABS: ALB/GLOB RATIO 1.3 (1.0-2.1); ALBUMIN 4.9 g/dL (3.5-5.0); ALT/SGPT 34 U/L (9-52); AST/SGOT 38 U/L (14-36); BLOOD UREA NITROGEN 10 mg/dL (7-17); CALCIUM 9.3 mg/dl (8.6-10.4); GFR AFRICAN-AMERICAN > 60; GFR NON-AFRICAN AMERICAN > 60
[2017-12-21 14:20] LABS: B-TYPE NATRIURETIC PEPTIDE 38.7 pg/mL (0-900)
--- NOTE | 2017-12-21 14:21 | C.PDOC ---
History Of Present Illness 62 y/o female presents to ED with complaints of palpitations while on her way to work today that resolved [employer]. Patient states she did not take her Norvasc secondary to leaving it at work yesterday. 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 At ED patient complaints of anxiety and denies any other complaints at this time. Time Seen by Provider: 12/21/17 13:17 Chief Complaint (Nursing): Dizziness/Lightheaded History Per: Patient History/Exam Limitations: no limitations Onset/Duration Of Symptoms: Days Current Symptoms Are (Timing): Still Present Past Medical History Reviewed: Historical Data, Nursing Documentation, Vital Signs Vital Signs: Last Vital Signs Temp 98.6 F 12/21/17 14:35 Pulse 78 12/21/17 14:35 Resp 20 12/21/17 14:35 BP 146/99 H 12/21/17 14:35 Pulse Ox 99 12/21/17 14:35 - Medical History PMH: HTN, Hypercholesterolemia Surgical History: No Surg Hx Family History: States: No Known Family Hx - Social History Hx Alcohol Use: No Hx Substance Use: No - Immunization History Hx Tetanus Toxoid Vaccination: No Hx Influenza Vaccination: No Hx Pneumococcal Vaccination: No Review Of Systems Constitutional: Negative for: Fever, Chills Cardiovascular: Positive for: Palpitations. Negative for: Chest Pain Respiratory: Negative for: Cough, Shortness of Breath Gastrointestinal: Negative for: Nausea, Vomiting Skin: Negative for: Rash Physical Exam - Physical Exam Appears: Non-toxic, No Acute Distress Skin: Warm, Dry, No Rash Head: Atraumatic, Normacephalic Oral Mucosa: Moist Neck: Normal ROM, Supple Cardiovascular: Rhythm Regular Respiratory: Normal Breath Sounds, No Rales, No Rhonchi, No Wheezing Gastrointestinal/Abdominal: Soft, No Tenderness, No Guarding, No Rebound Extremity: No Pedal Edema, Capillary Refill (<2 seconds) Neurological/Psych: Oriented x3, Normal Speech ED Course And Treatment - Laboratory Results Result Diagrams: 12/21/17 13:50 12/21/17 13:50 Lab Interpretation: Normal (ua neg) ECG: Interpreted By Me ECG Rhythm: Sinus Rhythm ECG Interpretation: Normal Rate From EC (bpm) O2 Sat by Pulse Oximetry: 99 (RA) Pulse Ox Interpretation: Normal - Radiology CXR: Interpreted by Me CXR Interpretation: Yes: No Acute Disease Progress Note: feels better, no meds given Reevaluation Time: 14:22 Reassessment Condition: Improved Medical Decision Making Medical Decision Making: transient dizziness LOW susp of arrhythmia no anemia no UTI no viral syndrome didn't take AM HTN meds, but took [employer], improved BP w improved symptoms. Disposition Doctor Will See Patient In The: Office Counseled Patient/Family Regarding: Studies Performed, Diagnosis - Disposition Referrals: [facility] [Outside] Disposition: HOME/ ROUTINE Disposition Time: 14:23 Condition: GOOD Additional Instructions: your evaluation today is NORMAL make sure to take your amlodipine in AM with your breakfast. Instructions: Dizziness, Nonvertigo, (DC) Forms: [employer] (Algerian) - Clinical Impression Clinical Impression: Dizziness, Dizziness - Scribe Statement The provider has reviewed the documentation as recorded by the Blaneibjulianna Mcclain All medical record entries made by the Blaneibjulianna were at my direction and personally dictated by me. I have reviewed the chart and agree that the record accurately reflects my personal performance of the history, physical exam, medical decision making, and the department course for this patient. I have also personally directed, reviewed, and agree with the discharge instructions and disposition.
[2017-12-21 14:37] VITALS: BP 146/99; PULSE 78; TEMP 98.6
--- NOTE | 2017-12-22 16:26 | CARD ---
APPROVED REPORT EKG Measurement Heart [id number] [place] 168P70 [id number] <Conclusion> Sinus rhythm with premature supraventricular complexes Possible Left atrial enlargement Borderline ECG
== END 2017-12-21 14:35 | disposition home or self-care (01) ==
LOC: C.ER 13:06
DX: R42 Dizziness and giddiness (principal); E78.00 Pure hypercholesterolemia, unspecified; I10 Essential (primary) hypertension

== ENCOUNTER 2019-02-15 08:50 | Outpatient (CLI) | payer OTHER | END 2019-02-15 08:51 | disposition home or self-care (01) | LOC: C.CARD 08:50 | DX: R06.00 Dyspnea, unspecified (principal); Z68.28 Body mass index [BMI] 28.0-28.9, adult ==